=== PATIENT | female | born 1960 | race Two or more races ===

== ENCOUNTER 2020-07-22 13:35 | Emergency (ER) | payer SELFPAY ==
[~2020-07-22] VITALS: Ht 162.6 cm; Wt 99.8 kg
[2020-07-22] MEDS ORDERED: methylPREDNISolone SOD SUCC 125 MG/2 ML VL IM ONE (17:30)
[2020-07-22 17:52] VITALS: BP 126/78
== END 2020-07-22 18:03 | disposition home or self-care (01) ==
LOC: ER 13:35
DX: M10.9 Gout, unspecified (principal); Z88.0 Allergy status to penicillin
CPT/HCPCS: 36415; 73630; 84550; 96372; 99284; J2930